=== PATIENT | female | born 1995 | race Caucasian/White ===

== ENCOUNTER 2021-07-02 20:04 | Emergency (ER) | payer OTHER, BC ==
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
[2021-07-02] MEDS ORDERED: EPINEPHrine/Lidocaine/Tetracai Topical Gel 3 ML TOP ONE (20:42)
== END 2021-07-02 21:19 | disposition home or self-care (01) ==
LOC: MW.ED 20:04
DX: S00.03XA Contusion of scalp, initial encounter (principal); V49.40XA Driver injured in collision with unspecified motor vehicles in traffic accident, initial encounter
CPT/HCPCS: 99284